=== PATIENT | female | born 1990 | race Caucasian/White ===

== ENCOUNTER 2016-10-04 01:48 | Emergency (ER) | payer OTHER ==
[~2016-10-04 01:48] MED LIST: COLACE100 MG PO
== END 2016-10-04 05:39 | disposition home or self-care (01) ==
LOC: ER1 01:48
DX: E86.0 Dehydration (principal); R82.4 Acetonuria; Z88.0 Allergy status to penicillin; Z88.1 Allergy status to other antibiotic agents
CPT/HCPCS: 81001; 84703; 96374; 99284; J2550